=== PATIENT | male | born 1975 | race Caucasian/White ===

== ENCOUNTER 2019-12-23 22:46 | Emergency (ER) | payer SELFPAY ==
[~2019-12-23] VITALS: Ht 177.8 cm; Wt 94.8 kg
[2019-12-23 22:57] VITALS: Ht 177.8 cm; Wt 94.8 kg
[2019-12-23 23:45] VITALS: BP 133/77
== END 2019-12-23 23:45 | disposition home or self-care (01) ==
LOC: ED 22:46
DX: S01.511A Laceration without foreign body of lip, initial encounter (principal); S80.212A Abrasion, left knee, initial encounter; S80.211A Abrasion, right knee, initial encounter; Y04.8XXA Assault by other bodily force, initial encounter; Y93.89 Activity, other specified; Y92.89 Other specified places as the place of occurrence of the external cause; Y99.8 Other external cause status
CPT/HCPCS: 90715